=== PATIENT | male | born 1995 | race Caucasian/White ===

== ENCOUNTER 2020-01-31 23:19 | Emergency (ER) | payer MEDICAID, OTHER ==
[~2020-01-31] VITALS: Ht 177.8 cm; Wt 145.5 kg
[~2020-01-31 23:19] MED LIST: ALBU8HFA PO
[2020-02-01] MEDS ORDERED: ONDA4TAB6 PO (00:59)
[2020-02-01] MEDS ORDERED: ondansetron 4mg rapidly disintigrating tab PO ONE (01:00)
[2020-02-01 01:27] VITALS: BP 106/65
== END 2020-02-01 01:28 | disposition home or self-care (01) ==
LOC: ER 23:19
DX: B34.9 Viral infection, unspecified (principal); Z20.828 Contact with and (suspected) exposure to other viral communicable diseases; R05 Cough; R11.2 Nausea with vomiting, unspecified; M79.10 Myalgia, unspecified site; Z79.899 Other long term (current) drug therapy
CPT/HCPCS: 36415; 87635; 99283

== ENCOUNTER 2023-10-20 11:47 | Emergency (ER) | payer MEDICAID ==
[~2023-10-20] VITALS: Ht 177.8 cm; Wt 137.4 kg
[~2023-10-20 11:47] MED LIST changes: +ONDA4TAB6 PO
[2023-10-20 11:52] VITALS: TEMP 98.6
[2023-10-20 12:17] VITALS: BP 165/97; PULSE 104; RESP 18; O2SAT 98
[2023-10-20 12:48] LABS: BASOPHILS % (AUTO) 0.3 % (0-1); EOSINOPHILS % (AUTO) 0.2 % (0-6); HEMATOCRIT 41.5 % (42.0-52.0); LYMPHOCYTES # (AUTO) 1.7 X10'3 (1.1-4.8); LYMPHOCYTES % (AUTO) 14.7 % (21-51); MEAN CORPUSCULAR HEMOGLOBIN 29.9 PG (27.0-31.0); MEAN CORPUSCULAR HGB CONC 33.7 g/dL (33.0-36.5); MEAN CORPUSCULAR VOLUME 88.6 FL (78-98); MEAN PLATELET VOLUME 8.7 FL (7.4-10.4); MONOCYTES # (AUTO) 0.6 X10'3 (0-0.9); MONOCYTES % (AUTO) 5.3 % (2-12); NEUTROPHILS # (AUTO) 9.4 X10'3 (1.8-7.7); NEUTROPHILS % (AUTO) 79.5 % (42-75); PLATELET COUNT 265 X10'3 (140-440); RED BLOOD COUNT 4.68 X10'6 (4.70-6.10); WHITE BLOOD COUNT 11.8 X10'3 (4.5-11.0)
[2023-10-20 13:01] LABS: ALANINE AMINOTRANSFERASE 37 U/L (12-78); ALBUMIN 3.9 G/DL (3.4-5.0); ALBUMIN/GLOBULIN RATIO 1.1 (1.1-1.5); ALKALINE PHOSPHATASE 83 IU/L (46-116); ANION GAP 9 (8-16); ASPARTATE AMINO TRANSFERASE 15 U/L (10-37); BILIRUBIN,TOTAL 0.5 MG/DL (0.1-1.0); BLOOD UREA NITROGEN 15 MG/DL (7-18); BUN/CREATININE RATIO 12.1 (10.0-20.0); CALCIUM 9.2 MG/DL (8.5-10.1); CHLORIDE 104 MMOL/L (99-107); CREATININE 1.24 MG/DL (0.60-1.10); GLUCOSE 159 MG/DL (70-104); LIPASE 23 U/L (16-77); POTASSIUM 3.6 MMOL/L (3.5-5.1); SODIUM 140 MMOL/L (135-145); TOTAL CARBON DIOXIDE 27.2 MMOL/L (24-32); TOTAL PROTEIN 7.4 G/DL (6.4-8.2); eCRCL 92 ML/MIN; eGFR 69 ML/MIN
[2023-10-20] MEDS: pantoprazole 40mg Tablet.DR PO ONE (13:31)
[2023-10-20] MEDS ORDERED: PANT-47 PO (13:54)
== END 2023-10-20 14:18 | disposition home or self-care (01) ==
LOC: ER 11:47
DX: R10.13 Epigastric pain (principal); R10.11 Right upper quadrant pain; E78.00 Pure hypercholesterolemia, unspecified; E11.9 Type 2 diabetes mellitus without complications; Z79.899 Other long term (current) drug therapy
CPT/HCPCS: 36415; 80053; 83690; 85025; 99283

== ENCOUNTER 2023-10-21 09:46 | Emergency (ER) | payer MEDICAID ==
[~2023-10-21] VITALS: Ht 177.8 cm; Wt 135.6 kg
[~2023-10-21 09:46] MED LIST changes: +PANT-47 PO
[2023-10-21] MEDS: normal saline 1000ML IV soln IVB ONE (10:22)
[2023-10-21] MEDS: morphine 4 MG/ML inj SYRINge IV ONE (10:24)
[2023-10-21] MEDS: ondansetron/PF 4mg/2ml inj IV ONE (10:24)
[2023-10-21 10:53] LABS: BASOPHILS % (AUTO) 0.4 % (0-1); EOSINOPHILS % (AUTO) 0.2 % (0-6); HEMATOCRIT 41.2 % (42.0-52.0); HEMOGLOBIN 13.9 g/dl (14.0-17.9); LYMPHOCYTES # (AUTO) 1.7 X10'3 (1.1-4.8); LYMPHOCYTES % (AUTO) 15.7 % (21-51); MEAN CORPUSCULAR HEMOGLOBIN 29.9 PG (27.0-31.0); MEAN CORPUSCULAR HGB CONC 33.7 g/dL (33.0-36.5); MEAN CORPUSCULAR VOLUME 88.7 FL (78-98); MEAN PLATELET VOLUME 8.5 FL (7.4-10.4); MONOCYTES # (AUTO) 0.8 X10'3 (0-0.9); MONOCYTES % (AUTO) 7.1 % (2-12); NEUTROPHILS # (AUTO) 8.4 X10'3 (1.8-7.7); NEUTROPHILS % (AUTO) 76.6 % (42-75); PLATELET COUNT 245 X10'3 (140-440); RED BLOOD COUNT 4.64 X10'6 (4.70-6.10); RED CELL DISTRIBUTION WIDTH 13.5 % (11.5-14.5); WHITE BLOOD COUNT 10.9 X10'3 (4.5-11.0)
[2023-10-21 11:16] LABS: ALANINE AMINOTRANSFERASE 34 U/L (12-78); ALBUMIN 3.8 G/DL (3.4-5.0); ALKALINE PHOSPHATASE 75 IU/L (46-116); ASPARTATE AMINO TRANSFERASE 16 U/L (10-37); BILIRUBIN,TOTAL 0.8 MG/DL (0.1-1.0); C-REACTIVE PROTEIN 7.27 MG/DL (0.0-0.5); LIPASE 22 U/L (16-77); TOTAL PROTEIN 7.6 G/DL (6.4-8.2)
[2023-10-21 11:20] LABS: BILIRUBIN,DIRECT 0.1 MG/DL (0-0.3)
[2023-10-21 11:51] VITALS: BP 134/71; PULSE 97; RESP 14; TEMP 98.1; O2SAT 100
== END 2023-10-21 11:52 | disposition home or self-care (01) ==
LOC: ER 09:47
DX: R10.13 Epigastric pain (principal); I10 Essential (primary) hypertension; K76.0 Fatty (change of) liver, not elsewhere classified; E78.00 Pure hypercholesterolemia, unspecified; E11.9 Type 2 diabetes mellitus without complications; Z79.899 Other long term (current) drug therapy
CPT/HCPCS: 36415; 76700; 80076; 83605; 83690; 84145; 85025; 86140; 87040; 96374; 96375; 99285; J2270; J2405; J7030